=== PATIENT | male | born 1990 | race Caucasian/White ===

== ENCOUNTER 2019-05-28 22:49 | Observation (INO) | payer OTHER, SELFPAY ==
[2019-05-28 22:49] VITALS: BP 160/88; PULSE 136; RESP 22; O2SAT 88
[2019-05-28 22:50] VITALS: BP 160/88; PULSE 138; RESP 21; TEMP 36.8; O2SAT 85; BMI 26.7
[2019-05-28 23:04] VITALS: BP 165/81; PULSE 133; RESP 20; O2SAT 92
--- NOTE | 2019-05-28 23:05 | RAD_ITS ---
STUDY: X-RAY CHEST REASON FOR EXAM: Male, 28 years old. Overdose. TECHNIQUE: Single AP portable view of the chest. COMPARISON: None. FINDINGS: The lungs are well-expanded. There is diffuse perihilar interstitial prominence. There is no demonstrated pleural abnormality. Normal size heart. Normal mediastinum. There is bilateral hilar prominence. Normal visualized aortic arch and descending thoracic aorta. Normal visualized thoracic spine. Normal visualized ribs, clavicles, and shoulders. There is no demonstrated abnormality of the visualized soft tissue structures of the upper abdomen. RAD/Chest 1 View (Portable) IMPRESSION: Perihilar interstitial prominence. Electronically Signed: Ambrosio Govea DO at 23:20 EST Tel [phone], Service support ,
[2019-05-28] MEDS: 0.9% Normal Saline 1,000 ML 999 ML IV (23:12)
[2019-05-28 23:16] VITALS: BP 132/85; PULSE 127; RESP 18; O2SAT 90
--- NOTE | 2019-05-28 23:21 | ED.DCSUM_ITS ---
- ER Visit Summary Date of Service: 05/28/19 Chief Complaint: Overdose History of Present Illness: The patient is a 28 M presenting per EMS after overdose. Patient admits to snorting Percocet risaight. 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 The last thing he recalls is snorting Percocet. He does not recall how he got to the hospital. Per his mother she heard him gasping for air and went to check on him. She called EMS and started CPR. On EMS arrival he was given Narcan intranasally and IV and became more responsive. Physical Examination: Vitals are stable. Patient is afebrile. 86% on room air, heart rate 133. Alert no acute distress. HEENT exam is unremarkable. Neck is supple. Lungs are diminished bilaterally. Heart is regular tachycardic Abdomen is soft nontender nondistended. Extremities are unremarkable. Skin is warm and dry. No focal neurologic deficit. Remainder of exam is unremarkable. Emergency Department Course and Treatment: Patient was placed on nasal cannula oxygen. He was given IV fluids. Chest x-ray shows perihilar interstitial prominence. CBC shows white count 11.9, hemoglobin 18.4. Chemistry showed creatinine 1.64. Oxygen is turned off his pulse ox goes down to 87% on room air. Patient states this was accidental and denies suicidal ideation. Discussed with the hospitalist for observation. Disposition: Observation Impression: Percocet overdose, hypoxia This note was generated with [employer] dictation software. It may contain incorrect words, spelling, and punctuation that were not noted in review of the chart prior to signing ED Disposition - Plan for ED Patient: Referrals: Care Physician,No Primary [Primary Care Provider] -
[2019-05-28 23:24] LABS: Absolute Lymphocyte Count 1.98 X10^3/uL (0.83-4.51); Absolute Neutrophil Count 8.9 X10^3/uL (2.0-7.7); Basophil# 0.08 X10^3/uL; Basophil% 0.7 % (0-1); Eosinophil# 0.02 X10^3/uL; Eosinophils% 0.2 % (0-5); Lymphocyte # 1.98 X10^3/ul (4.0); Lymphocyte % 16.6 % (19-41); Mean Corp Hgb Conc 32.6 g/dL (32-36); Mean Corpuscular Hgb 32.4 pg (27.0-32.0); Mean Corpuscular Volume 99.5 fL (80-94); Monocyte# 0.52 X10^3/uL; Monocyte% 4.4 % (0-10); NRBC Flagged by Analyzer 0 % (0-5); Neutrophil # 8.94 X10^3/uL (2.7-7.7); Neutrophil % 75.1 % (47-70); Platelet Count 287 K/mm3 (150-450); Red Blood Count 5.68 M/mm3 (4.6-6.2); White Blood Count 11.9 K/mm3 (4.4-11.0)
[2019-05-28 23:29] LABS: Hematocrit 56.5 % (40-54)
[2019-05-28 23:31] LABS: Anion Gap 15 (5-15); BUN 17 mg/dL (7-18); BUN/Creat Ratio 10.4 RATIO (10-20); Calcium,Total 8.6 mg/dL (8.5-10.1); Chloride 99 mmol/L (98-107); Creatinine, Serum 1.64 mg/dL (0.70-1.30); EST Glomerular Filtration Rate 53 mL/min (>60); Est Glom Filt Rate - Afr Amer 64 mL/min (>60); Estimated Creatinine Clearance 76.58 ml/min; Glucose 400 mg/dL (74-106); Potassium 4.3 mmol/L (3.5-5.1); Sodium Level 136 mmol/L (136-145)
[2019-05-28 23:34] LABS: Alcohol, Blood (Medical)-Serum < 3.0 mg/dL
[2019-05-28 23:35] LABS: Differential Indicated SCAN CRITERIA MET
--- NOTE | 2019-05-28 23:39 | ED.RN ---
RASHEEDA FROM LAB CALLED WITH HGB OF 18.4.
[2019-05-28 23:40] LABS: Hemoglobin 18.4 g/dL (13.0-16.5)
[2019-05-29] VITALS (14 sets, daily range): BP systolic 116–145; BP diastolic 69–82; PULSE 89–114; RESP 14–20; TEMP 36.4–37; O2SAT 92–99; BMI 26.7; BMI 27.7
--- NOTE | 2019-05-29 00:21 | HP.PCM_ITS ---
Problem List (1) Opiate overdose Status: Acute History of Present Illness Date of Admission: 05/29/19 Chief Complaint: unresponsive The patient is a 28 year old M was found by his mother unresponsive. She heard that he was making some odd respiratory sounds and found him on the couch unresponsive. They contacted EMS and then moved him from the couch to the floor and initiated CPR. EMS arrived gave the patient Narcan his mental status improved. Brought to the hospital underwent a work-up. Chest x-ray showed some hazy infiltrates bilaterally. The wean the oxygen down to room air and patient dropped into the mid 80s first pulse ox. Put back on higher flow oxygen and he was maintaining in the mid to low 90s. Patient is fairly active and has no prior lung diseases. Patient states that he was given 30 mg of Percocet by a friend or dealer. Stated that it was a blue pill and that he crushed it and snorted it. States that he normally does snort Percocet about once a month but those are 5 mg. His mother said there is no witnessed vomiting. [] Past Medical History Allergies No Known Allergies Allergy (Verified 05/28/19 23:15) Home Medications: Ambulatory Orders Medication Instructions Recorded NK 05/28/19 Surgical History: no surgical history Lives: With Family Smoking Status: Heavy Smoker (>10/day) Tobacco Use: Cigarettes Alcohol: Rare Drugs: Marijuana, - - Monthly Percocet - *Family History Maternal Family History: Family History (Last Updated 05/29/19 @ 00:23 by Jared Watkins DO) Grandfather Pulmonary fibrosis Review of Systems Constitutional: Denies: Anorexia, Chills, Fever Eyes: Denies: Blurred vision, Double vision HEENT: Denies: Head Aches, Sinus Congestion, Sinus Drainage Cardiovascular: Denies: Chest Pain, Palpitations Respiratory: Reports: Cough, Shortness of Breath Gastrointestinal: Denies: Abdominal Pain, Nausea, Vomiting Genitourinary: Denies: Dysuria Musculoskeletal: Denies: Joint Pain, Joint Tenderness Skin: Denies: Rash, Wounds Neurological: Denies: Numbness, Tingling, Focal weakness Psychiatric: Denies: Anxiety, Depression Hematologic/ Lymphatic: Denies: Easy Bruising, Easy Bleeding, Hx of blood clot Comment: All review systems are otherwise negative except for as mentioned above and in HPI. VTE Information - Inpt Only VTE Present on Admission: No VTE Mechan Device Prophylaxis: None VTE Pharm Prophylaxis ordered?: No Reason prophylaxis not ordered:: Procedure Not Indicated Patient Problems: Active and Suspected Problems Opiate overdose (Acute) - Physical Exam Vitals/I&O's: Vital Signs Temp Pulse Resp BP Pulse Ox 36.8 C 114 H 19 H 145/82 H 93 05/28/19 22:50 05/29/19 00:12 05/29/19 00:12 05/29/19 00:12 05/29/19 00:12 Oxygen Flow Rate (L/min) 6 Oxygen Delivery Method Nasal Cannula Weight: 94.4 kg Body Mass Index (BMI) 26.7 General: Alert, Cooperative, No apparent distress, Well developed, Well nourished HEENT: Atraumatic, Normocephalic Oral: Moist Mucosa, No Gingival or Mucosal Lesions/ Ulcerations Neck: No Nodes, Trachea Midline Lungs: - - Diminished. Faint coarse breath sounds. Cardiovascular: Regular rate, Regular Rhythm, Normal S1, Normal S2, No murmurs Abdomen: Bowel Sounds Present, Soft, Non Tender, Non-Distended, No Hepato- splenomegaly Extremities: No edema, No Calf Tenderness Skin: No rashes, No breakdown Musculoskeletal: No Tenderness to Palpation of Joints or Extremities, No Muscle Wasting Neurological: Muscle tone normal, Sensory exam intact to light touch and pain Psych/Mental Status: Normal Affect, Appropriate Laboratory Results 05/28/19 22:54: WBC 11.9 H, RBC 5.68, Hgb 18.4 H*, Hct 56.5 H, MCV 99.5 H, MCH 32.4 H, MCHC 32.6, RDW Std Deviation 48.0 H, RDW Coeff of Sindi 13.0, Plt Count 287, MPV 11.0, Immature Gran % (Auto) 3.000 H, Neut % (Auto) 75.1 H, Lymph % (Auto) 16.6 L, [place] % (Auto) 4.4, Eos % (Auto) 0.2, Baso % (Auto) 0.7, Absolute Neuts (auto) 8.9 H, Absolute Lymphs (auto) 1.98, Nucleated RBC % 0, Diff Path Review November05/28/19 22:54: Sodium 136, Potassium 4.3, Chloride 99, Carbon Dioxide 22.0, Anion Gap 15, BUN 17, Creatinine 1.64 H, Estim Creat Clear Calc 76.58, Est GFR (MDRD) Af Amer 64, Est GFR (MDRD) Non-Af 53 L, BUN/Creatinine Ratio 10.4, Glucose 400 H, Calcium 8.6 05/28/19 23:10: Ethyl Alcohol < 3.0 Test x-ray personally reviewed and showed some bilateral faint hazy infiltrates. Assessment/Plan All Active Problems Opiate overdose (Acute) 1. Acute opiate overdose * Patient's states very clearly that he was given 30 mg tablet of Percocet. I showed him pictures of Percocet from [employer] and he is stated that the blue pill that was pictured was not the same pill that he had ingested. A clarified that he sugar was 30 mg and he said he was told that. Percocet does not come in 30 mg. Concern is if it was some other substance, such as fentanyl or something else that may have led to this episode. Patient states that he uses only once a month but usually 5 mg. I have advised complete cessation from any narcotics. I also advised that he have worse family have a Narcan pen at home in case when these episodes ever happens again. 2. Acute hypoxic respiratory insufficiency * Secondary to overdose * No obvious signs that he had aspirated but certainly could be a factor. Could be pulmonary edema/acute lung injury to what ever he ingested when he snorted the pill * Plan is to monitor the patient overnight and reassess. I did explain the patient may require oxygen when he goes home. * Given the potential for aspiration, I will start the patient on ampicillin/sulbactam. * pulm toilet 3. VTE prophylaxis: Not indicated as patient is low risk as he is observation status at this time. Code Visit OBSV E&M: 93412 Initial observation care L3
[2019-05-29] MEDS: 0.9% Normal Saline 1,000 ML 200 ML IV (01:47)
[2019-05-29 06:56] LABS: Absolute Neutrophil Count 21.1 X10^3/uL (2.0-7.7); Basophil# 0.04 X10^3/uL; Basophil% 0.2 % (0-1); Hematocrit 48.1 % (40-54); Hemoglobin 16.2 g/dL (13.0-16.5); Lymphocyte % 4.7 % (19-41); Mean Corp Hgb Conc 33.7 g/dL (32-36); Mean Corpuscular Hgb 32.5 pg (27.0-32.0); Mean Corpuscular Volume 96.6 fL (80-94); Mean Platelet Vol. 11.2 fl (6.2-12.0); Monocyte% 4.7 % (0-10); NRBC Flagged by Analyzer 0 % (0-5); Neutrophil # 21.05 X10^3/uL (2.7-7.7); Neutrophil % 89.2 % (47-70); POSITIVE DIFFERENTIAL YES; POSITIVE MORPHOLOGY YES; Platelet Count 216 K/mm3 (150-450); RBC Distribution Width CV 12.9 % (11.6-14.6); RBC Distribution Width SD 46.5 fl (35.1-43.9); Red Blood Count 4.98 M/mm3 (4.6-6.2); White Blood Count 23.6 K/mm3 (4.4-11.0)
[2019-05-29 07:03] LABS: Differential Indicated SCAN CRITERIA MET
[2019-05-29 07:17] LABS: Anion Gap 6 (5-15); BUN 16 mg/dL (7-18); BUN/Creat Ratio 15.1 RATIO (10-20); Calcium,Total 8.1 mg/dL (8.5-10.1); Chloride 104 mmol/L (98-107); Creatinine, Serum 1.06 mg/dL (0.70-1.30); EST Glomerular Filtration Rate 87 mL/min (>60); Est Glom Filt Rate - Afr Amer 105 mL/min (>60); Estimated Creatinine Clearance 118.47 ml/min; Glucose 90 mg/dL (74-106); Potassium 4.6 mmol/L (3.5-5.1); Sodium Level 137 mmol/L (136-145)
--- NOTE | 2019-05-29 10:59 | DCINST_ITS ---
- Discharge Diagnoses Current Active Problems: Current Active and Chronic Problems Opiate overdose (Acute) Reason(s) for Visit for Discharge Instructions: Shortness of breath, unresponsiveness You will use the following diet at home:: Regular Your food should be the consistency of: Regular Your liquids should be the consistency of: Regular/Thin Discharge Activity: Return to Normal Activity Additional Instructions: You are advised to quit using heroin and illict drugs. Continue to use your incentive spirometer. Follow-up with your primary care doctor within 1-2 weeks. Allergies/Adverse Reactions: Allergies No Known Allergies Allergy (Verified 05/28/19 23:15) Medications to take at Discharge Guaifenesin [Robitussin] 20 ml PO Q4H PRN PRN #1 bottle 05/29/19 The following prescriptions were given: Guaifenesin [Robitussin] 20 ml PO Q4H PRN PRN #1 bottle PRN Reason: COUGH Transmission Status: Pending to [facility] Primary Care Physician: Care Physician,No Primary [Primary Care Provider] - Please follow up with your Primary Care Physician in: within 1-2 weeks Test Results: Test results from this visit will be discussed in further detail at your follow- up appointment, if applicable. Proposed Discharge Date: 05/29/19
--- NOTE | 2019-05-29 11:03 | PCM.DC.SUM ---
Discharge Date and Diagnosis Date of Admission: 05/29/19 Date of Discharge: 05/29/19 - Primary Discharge Diagnosis Active and Suspected Problems Opiate overdose (Acute) Hypoxia aspiration pneumonitis ruled out Hospital Course and Treatment Imaging Results: Clinical Impression(s) from Imaging Studies Chest X-Ray 05/28/19 23:05 IMPRESSION: Perihilar interstitial prominence. Electronically Signed: Ambrosio Govea DO at 23:20 EST Tel [phone], Service support , None Operations: None Procedures: None Summary of Care Provided: The patient is a 28 year old M was found by his mother unresponsive. She had head he makes some old respiratory sounds and had found him on the couch unresponsive. EMS was called and recommended that they started CPR. When the EMS arrived, patient was given Narcan and his mental status improved. Patient's work-up in the ED show some hazy infiltrates bilaterally on x-ray. Attempt to wean patient down from oxygen resulted in patient dropping into the 80s on pulse oximetry. Admitted to taking Percocet by a friend on [place]. He snorted it. According to the mother there was no episode of witnessed vomiting. He was admitted overnight to the telemetry floor on oxygen. Continue to improve. At the time of being discharged, he had no new complaints. He was weaned off oxygen. He was evaluated for ambulatory oxygen and did not qualify for oxygen. He stated above 92% whole time. He was strongly advised to quit using heroin and any illicit drugs. Also advised to quit smoking. Subjective: On the day of discharge, patient was seen and examined. He denied any new complaints. No acute events overnight. - Physical Exam Vitals/I&O's: Vital Signs Temp Pulse Resp BP Pulse Ox 98.6 F 95 14 116/78 94 05/29/19 09:52 05/29/19 09:52 05/29/19 09:52 05/29/19 09:52 05/29/19 09:52 Oxygen Flow Rate (L/min) 1 Oxygen Delivery Method Room Air Weight: 98 kg Body Mass Index (BMI) 27.7 Intake and Output for Last 24 Hours 05/27/19 05/28/19 05/29/19 23:59 23:59 23:59 Intake Total 2524.00 / 2524.00 Output Total 400 / 400 Balance 2123.00 / 2123.00 General: Alert, Oriented x3, Cooperative, No apparent distress HEENT: Atraumatic, PERRLA, EOMI, Normocephalic Oral: Moist Mucosa Neck: Supple Lungs: Clear to auscultation, Normal air movement Cardiovascular: Regular rate, Regular Rhythm, Normal S1, Normal S2, No murmurs Abdomen: Bowel Sounds Present, Soft, Non Tender, Non-Distended Extremities: No edema Skin: No rashes, No breakdown Musculoskeletal: No Tenderness to Palpation of Joints or Extremities Lymphatic: No Cervical, Supraclavicular, or Inguinal Adenopathy Neurological: Cranial nerves II-XII grossly intact, Neuro grossly intact Psych/Mental Status: Normal Affect, Appropriate Laboratory Results 05/28/19 22:54: WBC 11.9 H, RBC 5.68, Hgb 18.4 H*, Hct 56.5 H, MCV 99.5 H, MCH 32.4 H, MCHC 32.6, RDW Std Deviation 48.0 H, RDW Coeff of Sindi 13.0, Plt Count 287, MPV 11.0, Immature Gran % (Auto) 3.000 H, Neut % (Auto) 75.1 H, Lymph % (Auto) 16.6 L, [place] % (Auto) 4.4, Eos % (Auto) 0.2, Baso % (Auto) 0.7, Absolute Neuts (auto) 8.9 H, Absolute Lymphs (auto) 1.98, Nucleated RBC % 0, Diff Path Review November05/28/19 22:54: Sodium 136, Potassium 4.3, Chloride 99, Carbon Dioxide 22.0, Anion Gap 15, BUN 17, Creatinine 1.64 H, Estim Creat Clear Calc 76.58, Est GFR (MDRD) Af Amer 64, Est GFR (MDRD) Non-Af 53 L, BUN/Creatinine Ratio 10.4, Glucose 400 H, Calcium 8.6 05/28/19 23:10: Ethyl Alcohol < 3.0 05/29/19 05:40: WBC 23.6 H, RBC 4.98, Hgb 16.2, Hct 48.1, MCV 96.6 H, MCH 32.5 H, MCHC 33.7, RDW Std Deviation 46.5 H, RDW Coeff of Sindi 12.9, Plt Count 216, MPV 11.2, Immature Gran % (Auto) 1.200 H, Neut % (Auto) 89.2 H, Lymph % (Auto) 4.7 L, [place] % (Auto) 4.7, Eos % (Auto) 0.0, Baso % (Auto) 0.2, Absolute Neuts (auto) 21.1 H, Absolute Lymphs (auto) 1.10, Nucleated RBC % 0, Differential Comment 05/29/19 05:40: Sodium 137, Potassium 4.6, Chloride 104, Carbon Dioxide 27.0, Anion Gap 6, BUN 16, Creatinine 1.06, Estim Creat Clear Calc 118.47, Est GFR (MDRD) Af Amer 105, Est GFR (MDRD) Non-Af 87, BUN/Creatinine Ratio 15.1, Glucose 90, Calcium 8.1 L Current Medications Acetaminophen (Tylenol) 650 mg PO Q6H PRN PRN PRN Reason: Pain Score 1-10/Temp > 100.7 F Albuterol Sulfate (Ventolin Aerosols) 2.5 mg INHALATION Q2H PRN PRN PRN Reason: Shortness of Breath/Wheezing Dextrose (D50w Syringe) 0 gm IV X1 PRN; Protocol PRN Reason: Hypoglycemia Glucagon () 1 mg IM .X1 PRN PRN Reason: Hypoglycemia Guaifenesin (Robitussin) 20 ml PO Q4H PRN PRN PRN Reason: COUGH Ampicillin Sodium/Sulbactam (Sodium 3 gm/ Sodium Chloride) 112 mls @ 150 mls/hr IV Q8 ROSALIA Last Infusion: 05/29/19 06:14 Dose: Infused Documented by: Sodium Chloride () 250 mls @ 15 mls/hr IV .[id number] PRN PRN Reason: Saline Flush Ibuprofen (Motrin) 400 mg PO Q4H PRN PRN PRN Reason: Pain Score 1-10/Temp > 100.7 F Melatonin (Melatonin) 3 mg PO QHS PRN PRN PRN Reason: INSOMNIA Ondansetron HCl (Zofran) 4 mg IV Q8H PRN PRN PRN Reason: NAUSEA/VOMITING Sodium Chloride () 10 - 40 ml IV UD PRN PRN Reason: SALINE FLUSH Discharge Activity: Return to Normal Activity Home Medications: Medications to take at Discharge Guaifenesin [Robitussin] 20 ml PO Q4H PRN PRN #1 bottle 05/29/19 Following Prescrptions Were Given to Patient: Guaifenesin [Robitussin] 20 ml PO Q4H PRN PRN #1 bottle PRN Reason: COUGH Transmission Status: Received by [facility] Primary Care Physician: Care Physician,No Primary [Primary Care Provider] - Please follow up with your Primary Care Physician in: within 1-2 weeks Medical Necessity - Tobacco Use Smoking Status: Heavy Smoker (>10/day) Tobacco Use: Cigarettes Meaningful Use Info Meaningful Use Diagnoses (Choose all that apply): None applicable Code Visit OBSV E&M: 71129 Observation care discharge
[2019-05-31 10:58] LABS: Pathologist Review Reviewed
== END 2019-05-29 11:42 | disposition home or self-care (01) ==
LOC: ED 23:34 → MS3 05-29 03:35
PROVIDERS: Emergency Provider Emergency Medicine; Visit Provider Internal Medicine
DX: T40.2X1A Poisoning by other opioids, accidental (unintentional), initial encounter (principal); R09.02 Hypoxemia; F17.210 Nicotine dependence, cigarettes, uncomplicated
CPT/HCPCS: 36415; 71045; 80048; 80320; 85025; 94667; 94762; 96361; 96365; 96366; 99218; 99251; 99284; 99406; J7030; A4216; G0378; G0463; G0480; J0295